=== PATIENT | male | born 1950 | race Caucasian/White ===

== ENCOUNTER → 2018-01-23 | Outpatient (CLI) | payer MEDICARE ==
[~2018-01-23] MED LIST: IOHEXOL 240 MG/ML 50ML VIAL. IV ONE; IOHEXOL 240 MG/ML 50ML VIAL. PO ONE; IOHEXOL 300 MG/ML 100ML VIAL. IV ONE; diphenhydrAMINE HCL 25 MG CAPSULE PO ONE
--- NOTE | 2018-01-23 16:37 | RAD ---
CT scan of the chest, abdomen, and pelvis without comparison for lymphocytosis, general weakness for 2 months. TECHNIQUE: Contiguous helical 5 mm axial images are obtained from the thoracic inlet to the pelvic floor following administration of oral contrast only. Sagittal and coronal reformations are evaluated. Findings in the chest: Heart size is borderline enlarged. Coronary artery calcifications are seen. There are prominent bilateral axillary lymph nodes, however these retain their normal morphology and are likely benign. Scattered mediastinal lymph nodes are noted without evidence of pathologic enlargement. No suspicious hilar or mediastinal adenopathy is seen. There are 3 tiny pleural-based nodules, one of which is seen on axial image #20 in the anterior right upper lobe, a second of which is seen on axial image #29 anterolaterally within the right middle lobe, the third of which is seen along the major fissure on axial image #31, and a fourth which is seen laterally in the left lingula on axial image #39. The largest of these nodules is on axial image #29 and measures 4 mm. No other lung nodules or masses are seen. Central airways are patent. No osseous anomalies are seen. Findings in the abdomen and pelvis: The gallbladder is fluid grossly unremarkable. Evaluation of the solid organ parenchyma is limited by lack of IV contrast, however no gross abnormality is of the liver, spleen, pancreas, bilateral adrenal glands, or bilateral kidneys is identified. There is no hydroureter. The urinary bladder is partially fluid distended and grossly unremarkable. There are few phleboliths within the pelvis. Scattered vascular calcifications are noted. No free or loculated fluid collections are seen within the abdomen or pelvis. There is inhomogeneous opacification of the bowel, with no areas of focal bowel wall thickening or bowel dilatation identified. The appendix is not identified and is either surgically absent or benign on this basis. There are several small retroperitoneal and inguinal lymph nodes with no pathologic enlargement. There is a very small sliding-type hiatal hernia. There is compression fracture of T12 which appears old and healed. IMPRESSION: 1. Several small pleural-based pulmonary nodules, the largest of which is 4 mm. Consider 6 or 12 month follow-up CT scan dependent patient's risk factors. 2. No acute cardiomediastinal abnormalities. 3. No acute intra-abdominal abnormalities. 4. Compression fracture of T12 which appears healed. PQRS Compliance Statement: One or more of the following individualized dose reduction techniques were utilized for this examination: 1. Automated exposure control 2. Adjustment of the mA and/or kV according to patient size 3. Use of iterative reconstruction technique Electronically signed by: Lars Desai MD (01/23/2018 4:34 PM) [facility]
== END | disposition home or self-care (01) ==
LOC: CT 08:46
PROVIDERS: ATTEND Family Medicine
DX: D72.820 Lymphocytosis (symptomatic) (principal); M48.54XD Collapsed vertebra, not elsewhere classified, thoracic region, subsequent encounter for fracture with routine healing; K44.9 Diaphragmatic hernia without obstruction or gangrene; R91.8 Other nonspecific abnormal finding of lung field; I87.8 Other specified disorders of veins
CPT/HCPCS: 71250; 74176; Q0163

== ENCOUNTER 2018-02-12 06:59 | Outpatient (CLI) | payer MEDICARE ==
[2018-02-12] VITALS (10 sets, daily range): BP systolic 139–151; BP diastolic 76–91
[~2018-02-12] VITALS: Ht 175.3 cm; Wt 97.5 kg
[2018-02-12] MEDS ORDERED: MIDAZOLAM HCL/PF 2 MG/2 ML VIAL. ONE (07:50)
[2018-02-12] MEDS ORDERED: fentaNYL PF VIAL 100 MCG/2 ML VIAL ONE (07:50)
[2018-02-12 07:51] LABS: BASO # 0.2 x10^3/uL (0.0-0.2); BASO % 1 % (0-3); EOS # 0.1 x10^3/uL (0.0-0.7); EOS % 0 % (0-3); HEMATOCRIT 43.2 % (39.0-53.0); HEMOGLOBIN 14.5 g/dL (13.0-17.5); LYMPH # 17.9 x10^3/uL (1.0-4.8); LYMPH % 76 % (24-48); MEAN CORPUSCULAR HEMOGLOBIN 29 pg (25-35); MEAN CORPUSCULAR HGB CONC 34 g/dL (31-37); MEAN CORPUSCULAR VOLUME 86 fL (79-100); MONO # 2.2 x10^3/uL (0.0-1.1); MONO % 9 % (0-9); NEUT # 3.1 x10^3uL (1.8-7.7); NEUT % 13 % (31-73); PLATELET COUNT 72 x10^3/uL (140-400); RED BLOOD COUNT 5.01 x10^6/uL (4.30-5.70); RED CELL DISTRIBUTION WIDTH 15.2 % (11.5-14.5); WHITE BLOOD COUNT 23.5 x10^3/uL (4.0-11.0)
[2018-02-12] MEDS ORDERED: LIDOCAINE WITH 8.4% SOD BICARB 3 ML DISP.SYRIN. ONE (07:52)
[2018-02-12] MEDS ORDERED: ATOR10TA60 PO (08:01)
[2018-02-12] MEDS ORDERED: LISI-338 PO (08:01)
[2018-02-12] MEDS ORDERED: ASPI-630 PO (08:01)
[2018-02-12] MEDS ORDERED: OMEP20CA9 PO (08:01)
[2018-02-12 08:04] LABS: PROTHROMBIN TIME PATIENT 11.9 SEC (11.7-14.0)
[2018-02-12] MEDS ORDERED: MIDAZOLAM HCL/PF 2 MG/2 ML VIAL. IV ONE (09:00)
[2018-02-12] MEDS ORDERED: LIDOCAINE WITH 8.4% SOD BICARB 3 ML DISP.SYRIN. IJ ONE (09:00)
[2018-02-12] MEDS ORDERED: fentaNYL PF VIAL 100 MCG/2 ML VIAL IV ONE (09:00)
[2018-02-12 09:29] LABS: % BASOS 1 % (0-3); % LYMPHS 89 % (24-48); % MONOS 6 % (0-10); % SEGS 4 % (35-66); PLT ESTIMATE DECREASED (ADEQUATE)
[2018-02-12 09:31] LABS: SMUDGE CELLS PRESENT
--- NOTE | 2018-02-12 12:02 | RAD ---
CT-guided bone marrow biopsy. 02/12/2018 11:58 AM Indication: LYMPHOCYTOSIS Discussion: The risks and benefits of the procedure, including but not limited to, bleeding and infection were discussed patient. Informed consent was obtained. The patient was brought to the CT scanner and placed in the prone position. A timeout procedure was performed. Bundle Clerk CT imaging of the pelvis demonstrated left ilium amenable to bone marrow biopsy. The overlying soft tissues were prepped and draped using maximum sterile barrier technique. 1% lidocaine without epinephrine was administered for local anesthesia. Under intermittent CT guidance, an Onc Control needle was advanced into the bone marrow of the left iliac crest. 2 Aspirates and 1 core biopsy samples were obtained. Samples were delivered to pathology was present at the time of procedure. The needle was removed and manual pressure held to achieve hemostasis. No immediate complications were identified. The procedure was performed under conscious sedation including continuous cardiopulmonary monitoring via dedicated sedation nurse. Sedation time: 20 minutes Impression: Successful CT-guided bone marrow biopsy of the left iliac crest . PQRS Compliance Statement: One or more of the following individualized dose reduction techniques were utilized for this examination: 1. Automated exposure control 2. Adjustment of the mA and/or kV according to patient size 3. Use of iterative reconstruction technique
== END 2018-02-12 10:15 | disposition home or self-care (01) ==
LOC: INTRAD 06:59
PROVIDERS: ATTEND Internal Medicine Hematology & Oncology
DX: D72.820 Lymphocytosis (symptomatic) (principal); Z91.041 Radiographic dye allergy status; Z79.01 Long term (current) use of anticoagulants; Z79.899 Other long term (current) drug therapy; Z79.82 Long term (current) use of aspirin
CPT/HCPCS: 36415; 38222; 77012; 85025; 85610; 85730; 88184; 88185; 88237; 99152; J2250; J3010; 85007